=== PATIENT | male | born 1990 | race Two or more races ===

== ENCOUNTER → 2022-06-14 | Emergency (ER) | payer OTHER ==
[~2022-06-14] VITALS: Ht 172.7 cm; Wt 68.0 kg
[~2022-06-14] MED LIST: INSULIN SYRING1 EA29 MC
== END | disposition left against medical advice (07) ==
LOC: ER 19:03
DX: S00.93XA Contusion of unspecified part of head, initial encounter (principal); X58.XXXA Exposure to other specified factors, initial encounter; Y93.9 Activity, unspecified; Y92.9 Unspecified place or not applicable; Y99.9 Unspecified external cause status